=== PATIENT | female | born 1990 | race African-American/Black ===

== ENCOUNTER → 2016-05-01 | Outpatient (CLI) | payer OTHER ==
[~2016-05-01] MED LIST: PRENTAB26 PO
== END | disposition home or self-care (01) ==
LOC: C.PAPS 10:32
PROVIDERS: ATTEND Obstetrics & Gynecology
DX: Z01.411 Encounter for gynecological examination (general) (routine) with abnormal findings (principal); N72 Inflammatory disease of cervix uteri

== ENCOUNTER 2016-07-01 13:25 | Emergency (ER) | payer OTHER ==
[~2016-07-01] VITALS: Ht 160 cm; Wt 66.0 kg
[2016-07-01 13:28] VITALS: Ht 160 cm; Wt 66.0 kg
[2016-07-01] MEDS ORDERED: ACETAMINOPHEN 500 MG TAB PO STA (14:07)
[2016-07-01 14:14] LABS: BASO % 0.7 %; BASO ABS # 0.03 K/uL (0-0.2); COMPLETE YES; EOS % 0.7 %; HEMATOCRIT 41.4 % (37-47); IG% 0.2 %; LYMPH % 41.5 %; LYMPH ABS # 1.77 K/uL (1.2-3.4); MEAN CELL VOLUME 86.4 fL (80-100); MEAN CORPUSCULAR HEMOGLOBIN 30.3 pg (25-34); MEAN PLATELET VOLUME 8.7 fL (7.4-10.4); MONO % 12.9 %; PLATELET COUNT 291 K/uL (130-400); RED BLOOD COUNT 4.79 M/uL (4.2-5.4); WHITE BLOOD COUNT 4.26 K/uL (4.8-10.8)
[2016-07-01] MEDS ORDERED: BENZONATATE 100MG CAP PO ONE (14:15)
[2016-07-01 14:24] LABS: BUN/CREATININE RATIO 9.9 (10-20); CALCIUM 8.7 mg/dl (8.5-10.1); CREATININE 0.9 mg/dl (0.60-1.20); POTASSIUM 3.4 mmol/L (3.5-5.1)
--- NOTE | 2016-07-01 15:04 | EMERGENCY ROOM VISIT NOTE ---
History Report prepared by Mcakiblizeth: Audi Qiu Under the Supervision of: Dr. Macho Casanova D.O. First contact with patient: 13:54 Chief Complaint: FEVER Stated Complaint: CHILLS, ONTIVEROS, SOB WHILE COUGHING History of Present Illness The patient is a 25 year old female who presents to the Emergency Room with complaints of a persistent cough that started three days ago. The cough produces mucous. The patient has also had a frontal headache since yesterday. She is febrile. She denies sore throat. The patient denies ear pain. She becomes short of breath with coughing only. The patient does not have any medical problems. 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 The patient does not have any specific sick contacts. She did not have Tylenol today. She denies the possibility of . Patient denies change in vision, fevers, chest pain, shortness of breath, nausea , vomiting, diarrhea, pain with urination, vaginal bleeding or discharge, and melena. Source of History: patient Onset: three days ago Position: other (respiratory) Quality: other (cough) Timing: other (persistent) Associated Symptoms: + SOB, + fevers, + headache, No chest pain, No diarrhea , No nausea, No sorethroat, No urinary symptoms, No vomiting Review of Systems See HPI for pertinent positives & negatives. A total of 10 systems reviewed and were otherwise negative. Past Medical & Surgical Medical Problems: (1) Beta-hemolytic Streptococcus carrier (2) Other specified complication, antepartum (3) Supervision of other normal Family History No pertinent family history Social History Smoking Status: Never Smoker Housing Status: lives with family Occupation Status: employed Current/Historical Medications No Active Prescriptions or Reported Meds Allergies Coded Allergies: No Known Allergies (Unverified , 02/01/15) Physical Exam Vital Signs Date Time Temp Pulse Resp B/P Pulse Ox O2 Delivery O2 Flow Rate FiO2 07/01/16 15:14 37.5 79 18 106/69 99 Room Air 07/01/16 13:28 38.3 76 18 110/71 100 Room Air Physical Exam GENERAL: Sitting up in bed, alert, well appearing, well nourished, no distress, non-toxic, nonproductive cough. EYE EXAM: normal conjunctiva, PERRL and EOM's grossly intact EARS: TMs are clear bilaterally OROPHARYNX: no exudate, no erythema, lips, buccal mucosa, and tongue normal and mucous membranes are moist NECK: supple, no nuchal rigidity, no adenopathy, non-tender LUNGS: Clear to auscultation. Normal chest wall mechanics HEART: no murmurs, S1 normal and S2 normal ABDOMEN: abdomen soft, non-tender, normo-active bowel sounds, no masses, no rebound or guarding. BACK: Back is symmetrical on inspection and there is no deformity, no midline tenderness, no CVA tenderness. SKIN: no rashes and no bruising UPPER EXTREMITIES: upper extremities are grossly normal. LOWER EXTREMITIES: No pitting edema. NEURO EXAM: Normal sensorium, cranial nerves II-XII grossly intact, normal speech, no gross weakness of arms, no gross weakness of legs. Gross sensation intact. Medical Decision & Procedures ER Provider Diagnostic Interpretation: Radiology results as stated below per my review and the radiologist's interpretation: CHEST ONE VIEW PORTABLE HISTORY: cough COMPARISON: None. FINDINGS: The lungs are clear. Cardiac silhouette is top normal in size. No pleural effusions. No pneumothorax. IMPRESSION: No acute process. Electronically signed by: Johnny Delatorre M.D. 07/01/2016 3:07 PM Dictated Date/Time: 07/01/2016 3:06 PM Laboratory Results 07/01/16 13:53 Red Blood Count 4.79, Mean Corpuscular Volume 86.4, Mean Corpuscular Hemoglobin 30.3, Mean Corpuscular Hemoglobin Concent 35.0, Mean Platelet Volume 8.7, Neutrophils (%) (Auto) 44.0, Lymphocytes (%) (Auto) 41.5, Monocytes (%) (Auto) 12.9, Eosinophils (%) (Auto) 0.7, Basophils (%) (Auto) 0.7, Neutrophils # (Auto ) 1.87, Lymphocytes # (Auto) 1.77, Monocytes # (Auto) 0.55, Eosinophils # (Auto ) 0.03, Basophils # (Auto) 0.03 07/01/16 13:53 Test 07/01/16 13:53 07/01/16 13:55 White Blood Count 4.26 K/uL (4.8-10.8) Red Blood Count 4.79 M/uL (4.2-5.4) Hemoglobin 14.5 g/dL (12.0-16.0) Hematocrit 41.4 % (37-47) Mean Corpuscular Volume 86.4 fL (80-100) Mean Corpuscular Hemoglobin 30.3 pg (25-34) Mean Corpuscular Hemoglobin Concent 35.0 g/dl (32-36) Platelet Count 291 K/uL (130-400) Mean Platelet Volume 8.7 fL (7.4-10.4) Neutrophils (%) (Auto) 44.0 % Lymphocytes (%) (Auto) 41.5 % Monocytes (%) (Auto) 12.9 % Eosinophils (%) (Auto) 0.7 % Basophils (%) (Auto) 0.7 % Neutrophils # (Auto) 1.87 K/uL (1.4-6.5) Lymphocytes # (Auto) 1.77 K/uL (1.2-3.4) Monocytes # (Auto) 0.55 K/uL (0.11-0.59) Eosinophils # (Auto) 0.03 K/uL (0-0.5) Basophils # (Auto) 0.03 K/uL (0-0.2) RDW Standard Deviation 41.7 fL (36.4-46.3) RDW Coefficient of Variation 13.0 % (11.5-14.5) Immature Granulocyte % (Auto) 0.2 % Immature Granulocyte # (Auto) 0.01 K/uL (0.00-0.02) Anion Gap 8.0 mmol/L (3-11) Est Creatinine Clear Calc Drug Dose 86.5 ml/min Estimated GFR () 102.3 Estimated GFR (Non- 88.2 BUN/Creatinine Ratio 9.9 (10-20) Calcium Level 8.7 mg/dl (8.5-10.1) Bedside Lactic Acid Venous 1.21 mmol/L (0.90-1.70) Influenza Type A Antigen Neg for Influ A (NEG) Influenza Type B Antigen POS for Influ B (NEG) Laboratory results per my review. Medications Administered Medications (Trade) Dose Ordered Sig/Cortes Route Start Time Stop Time Status Last Admin Dose Admin Acetaminophen (Tylenol Tab) 1,000 mg NOW STAT PO 07/01/16 14:07 07/01/16 14:08 DC 07/01/16 14:24 1,000 MG Benzonatate (Tessalon Perles Cap) 100 mg NOW ONCE PO 07/01/16 14:15 07/01/16 14:16 DC 07/01/16 14:24 100 MG ED Course ED COURSE: Vital signs were reviewed and showed fever. The patients medical record was reviewed The above diagnostic studies were performed and reviewed. ED treatments and interventions as stated above. 1400: The patient was evaluated in room B12B. A complete history and physical examination was performed. 1407: Tylenol 100 mg PO, Benzonatate 100 mg PO. 1505: Upon reevaluation, the patient is doing well.I discussed my findings with the patient and she understands and agrees with the treatment plan. Based on the patients age, coexisting illnesses, exam and lab findings the decision to treat as an outpatient was made. The patient remained stable while under my care. The patient appeared well at the time of discharge. Medical Decision Differential diagnosis: Etiologies such as viral syndrome, otitis, pharyngitis, pneumonia, influenza, meningitis, urinary tract infection, sepsis, bacteremia, as well as others were entertained. Patient is a 25 her old female who presents the ER for a productive cough for the past 2 days associated with a headache which started yesterday, runny nose and congestion. She does work at a daycare and has multiple sick contacts. On presentation vitals show that she is febrile. She has no other complaints. Lungs are clear. Chest x-ray is unremarkable. CBC and BMP were unremarkable. Lactate was ordered by nursing staff was negative. Patient was given Tessalon Perles and Tylenol. Based on her symptoms I favor this likely viral and influenza B was positive. Patient was updated bedside discharged. Discussed with Pt concerning signs and symptoms to watch out for. Pt was instructed to follow up with their PCP and discussed with the patient their option to return to the ED at anytime for persistent or worsening symptoms. The appropriate anticipatory guidance and out-patient management, including indications for return to the emergency department, were explained at length to the patient and understood. Impression Primary Impression: Influenza B Scribe Attestation The scribe's documentation has been prepared under my direction and personally reviewed by me in its entirety. I confirm that the note above accurately reflects all work, treatment, procedures, and medical decision making performed by me. Departure Information Dispostion Home / Self-Care Prescriptions No Active Prescriptions or Reported Meds Referrals No Doctor, Assigned (PCP) Forms HOME CARE DOCUMENTATION FORM, IMPORTANT VISIT INFORMATION Patient Instructions ED Flu, My [facility] Additional Instructions Please follow up with your primary care doctor with in the next 24 hours. Any worsening of your symptoms, please return to the ED immediately. This includes persistent fevers greater than 100.4 for 2-3 days, trouble swallowing passing out, trouble breathing, or any other concerning signs or symptoms from your stand point. Please take Motrin or Tylenol as needed for fevers.
--- NOTE | 2016-07-01 15:09 | DIAGNOSTIC IMAGING REPORT ---
CHEST ONE VIEW PORTABLE HISTORY: cough COMPARISON: None. FINDINGS: The lungs are clear. Cardiac silhouette is top normal in size. No pleural effusions. No pneumothorax. IMPRESSION: No acute process. Electronically signed by: Johnny Delatorre M.D. 07/01/2016 3:07 PM Dictated Date/Time: 07/01/2016 3:06 PM
[2016-07-01 15:14] VITALS: BP 106/69; PULSE 79; TEMP 37.5; O2SAT 99
== END 2016-07-01 15:16 | disposition home or self-care (01) ==
LOC: C.EDB 13:26
DX: J11.1 Influenza due to unidentified influenza virus with other respiratory manifestations (principal)

== ENCOUNTER 2017-04-24 15:56 | Emergency (ER) | payer OTHER ==
[~2017-04-24] VITALS: Ht 160 cm; Wt 61.4 kg
[2017-04-24 16:05] VITALS: BP 127/79; TEMP 36.9; Ht 160 cm; Wt 61.4 kg
[2017-04-24] MEDS ORDERED: MULT-513 PO (16:37)
[2017-04-24 17:21] LABS: INFLUENZA B ANTIGEN Neg for Influ B (NEG)
[2017-04-24] MEDS ORDERED: OSEL75CA12 PO (17:42)
--- NOTE | 2017-04-24 17:43 | EMERGENCY ROOM VISIT NOTE ---
History First contact with patient: 16:08 Chief Complaint: OTHER COMPLAINT Stated Complaint: FLU IS GOING ON IN DAY CARE FACILITY NO SYMP YET History of Present Illness The patient is a 26 year old female who presents to the Emergency Room via private vehicle with complaints of "exposure to flu". 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 She notes that she has no symptoms as of yet, but wants to be safe and evaluated. Review of Systems A complete 6-point Review of Systems was discussed with the patient, with pertinent positives and negatives listed in the History of Present Illness. All remaining Review of Systems questions can be considered negative unless otherwise specified. Past Medical/Surgical History Medical Problems: (1) Beta-hemolytic Streptococcus carrier (2) Other specified complication, antepartum (3) Supervision of other normal Family History No pertinent family history Social History Smoking Status: Current Some Day Smoker Housing Status: lives with family Occupation Status: employed Current/Historical Medications Scheduled Multivitamins/Minerals (Mvi With Minerals), 1 TAB PO DAILY Oseltamivir (Tamiflu), 75 MG PO BID Physical Exam Vital Signs Date Time Temp Pulse Resp B/P (MAP) Pulse Ox O2 Delivery O2 Flow Rate FiO2 04/24/17 18:15 77 18 98 04/24/17 16:05 36.9 52 18 127/79 99 Room Air Physical Exam VITAL SIGNS - Vital signs and nursing notes were reviewed. Stable. GENERAL -26-year-old female appearing her stated age who is in no acute distress. Communicates well with provider and answers questions appropriately. SKIN - Without rashes. No petechial rashes. HEAD - NC/AT. EYES - PERRL with EOMI bilaterally. Sclera anicteric. EARS - No deformities of external structures noted on gross examination bilaterally. External auditory canals without discharge or otorrhea. Tympanic membranes pearly govea without retraction or bulging. No fluid or purulent material visualized behind the TM. Handle of malleus, umbo, cone of light, pars tensa/flaccid all easily visualized. NOSE - Midline and without cyanosis. No epistaxis or purulent drainage noted. MOUTH/OROPHARYNX - Without perioral cyanosis. NECK - No nuchal rigidity. LUNGS - Chest wall symmetric without accessory muscle use, intercostals retractions, or central cyanosis. Normal vesicular breath sounds CTA B/L. No wheezes, rales, or rhonchi appreciated. CARDIAC - RRR with S1/S2. No murmur, rubs, or gallops appreciated. Medical Decision & Procedures Laboratory Results Test 04/24/17 16:41 Influenza Type A Antigen Neg for Influ A (NEG) Influenza Type B Antigen Neg for Influ B (NEG) Medical Decision Patient was seen and evaluated as above. She presents to us today with exposure to influenza. She is nontoxic on exam. She has no symptoms. She was offered Tamiflu, and notes that at this time she will refrain but did agree to have a prescription written in the event that she begins with symptoms, or decides to take the prophylaxis. She was informed that if she takes a prophylactic doses is is for 7 days, but if she develops symptoms of this it is for 5 days. She is to follow with her family doctor. She is to return with worsening. She was educated upon management, educated upon worrisome symptoms which to return, had questions answered prior to discharge, and was discharged home in good condition. In evaluation treatment this patient following differential diagnoses were entertained: Encounter for evaluation post exposure of the influenza virus. Impression Primary Impression: Exposure to the flu Departure Information Dispostion Home / Self-Care Condition GOOD Prescriptions Oseltamivir (Tamiflu) 75 Mg Cap 75 MG PO BID for 7 Days, #14 CAP Prov: Nima Kaur PA-C 04/24/17 Referrals No Doctor, Assigned (PCP) Patient Instructions My [facility] Additional Instructions You were seen in the emergency Department for exposure to the flu. A rapid strep throat swab was negative. If this grows out strep in our lab you will be notified. You have been prescribed Tamiflu. If he would like to initiate prophylaxis/ prevention of fluid you may take this 1 tablet every 12 hours for 7 days. You may also wait and if you develops symptoms of the flu you may take this for 5 days. Please rest and stay well hydrated. Please return with any new/concerning symptoms.
[2017-04-24 18:15] VITALS: PULSE 77; O2SAT 98
== END 2017-04-24 18:14 | disposition home or self-care (01) ==
LOC: C.EDB 15:58 → C.EDD 18:14
DX: Z20.828 Contact with and (suspected) exposure to other viral communicable diseases (principal); F17.210 Nicotine dependence, cigarettes, uncomplicated

== ENCOUNTER → 2017-05-03 | Outpatient (CLI) | payer OTHER ==
[~2017-05-03] MED LIST changes: +MULT-513 PO; -PRENTAB26 PO
== END | disposition home or self-care (01) ==
LOC: C.PAPS 09:18
PROVIDERS: ATTEND Obstetrics & Gynecology
DX: D06.9 Carcinoma in situ of cervix, unspecified (principal)